=== PATIENT | male | born 1955 | race Caucasian/White ===

== ENCOUNTER 2018-10-20 13:24 | Day surgery (SDC) | payer BC ==
[~2018-10-20] VITALS: Ht 172.7 cm; Wt 77.1 kg
[2018-10-20] MEDS ORDERED: LACTATED RINGERS 1,000 ML IV ONE (13:30)
[2018-10-20] MEDS ORDERED: SUCCINYLCHOLINE INJ 100 MG/5 ML SYR ONE (13:40)
[2018-10-20] MEDS ORDERED: proPOfol 200 MG/20 ML (DIPRIVAN) VIAL IV ONE (13:41)
[2018-10-20] MEDS ORDERED: LIDOCAINE PF 2% 5 ML (XYLOCAINE) VIAL ONE (13:41)
[2018-10-20] MEDS ORDERED: fentaNYL INJECTION 100 MCG/2 ML AMP ONE (13:41)
[2018-10-20] MEDS ORDERED: MIDAZOLAM 2 MG/2 ML (VERSED) VIAL ONE (13:41)
[2018-10-20] MEDS ORDERED: LACTATED RINGERS 1,000 ML IV STA (13:54)
[2018-10-20] MEDS ORDERED: HURRICAINE EXT TUBE (BENZOCAINE) XX PRN (14:00)
[2018-10-20] MEDS ORDERED: SUCR1TAB36 PO (14:03)
[2018-10-20] MEDS ORDERED: PANT40SU PO (14:03)
[2018-10-20] MEDS ORDERED: ONDANSETRON 4 MG/2 ML (SDV) Z0FRAN ONE (14:05)
[2018-10-20] MEDS ORDERED: DEXAMETHASONE 10 MG/ML (DECADRON) 1 ML VIAL ONE (14:05)
[2018-10-20 14:12] VITALS: BP 114/83
[2018-10-20] MEDS ORDERED: SEVOFLURANE (ULTANE) 15 ML INHAL SOLN ONE (14:45)
--- NOTE | 2018-10-20 14:51 | Discharge Inst-Simple/Standard ---
Discharge Inst-Standard Patient Instructions/Follow Up Plan of Care/Instructions/FU: F/u Teri Tuesday. Activity as Tolerated: Yes Discharge Diet: Liquid Diet (liquid diet only, no pills or solids. Drink Ensure as well daily) KRISTINA ENCINAS DO Oct 20, 2018 14:51
[2018-10-20 15:15] VITALS: BP 122/67
--- NOTE | 2018-10-20 15:30 | Anesthesia-General Post-Op ---
General Patient Condition Mental Status/LOC: Same as Preop Cardiovascular: Satisfactory Nausea/Vomiting: Absent Respiratory: Satisfactory Pain: Controlled Complications: Absent Post Op Complications Complications None Follow Up Care/Instructions Patient Instructions None needed. Anesthesia/Patient Condition Patient Condition Patient is doing well, no complaints, stable vital signs, no apparent adverse anesthesia problems. No complications reported per nursing. D/C home per [facility] Criteria: Yes AYDEN HINSON CRNA Oct 20, 2018 15:30
[2018-10-20 15:50] VITALS: BP 119/80
[2018-10-20 15:55] LABS: BUN/CREATININE RATIO 15; CREATININE SERUM 0.82 MG/DL (0.60-1.30); GFR ESTIMATED > 60
--- NOTE | 2018-10-20 16:03 | Progress Note-Post Operative ---
Post-Operative Progess Note Surgeon (s)/Strategic Planning Specialist (s) Surgeon KRISTINA ENCINAS DO Strategic Planning Specialist: na Pre-Operative Diagnosis esophageal obstruction Post-Operative Diagnosis esophageal mass/obstruction Procedure & Operative Findings Date of Procedure 10/20/18 Procedure Performed/Findings egd c biopsies Anesthesia Type per continuity tester Estimated Blood Loss Estimated blood loss (mL): scant Specimens/Packing Specimens Removed ge mass KRISTINA ENCINAS DO Oct 20, 2018 16:03
[2018-10-20] MEDS ORDERED: CATHETER FLUSH 10 ML SYR IV PRN (16:15)
[2018-10-20] MEDS ORDERED: NS 100 ML (IVPB) BAG IV ONE (16:15)
[2018-10-20] MEDS ORDERED: IOHEXOL 350 MG/ML 100 ML (OMNIPAQUE 350) VIAL IV ONE (16:15)
[2018-10-20] MEDS ORDERED: RECEIVED CONTRAST 20 ML VIAL IV SCH (16:15)
--- NOTE | 2018-10-20 16:46 | NUR ---
1615: PATIENT TAKEN TO X-RAY DEPARTMENT FOR CT SCAN PER WHEELCHAIR. IV HEP.LOCKED; SITE GRACE. 1644" : PATIENT RETURNED FROM X-RAY DEPARTMENT; D/C;D IV AT THIS TIME. SITE GRACE BANDAID APPLIED. Addendum: 10/20/18 at 1651 by ART SALCEDO RN Amended: Links added.
[2018-10-20 16:50] VITALS: BP 119/80
--- NOTE | 2018-10-20 17:27 | Diagnostic Imaging Report ---
PROCEDURE: CT chest and abdomen with contrast. TECHNIQUE: Multiple contiguous axial images were obtained through the chest and abdomen after the administration of intravenous contrast. INDICATION: Esophageal mass. COMPARISON: None. FINDINGS: CT CHEST: The heart is normal in size. There is no pericardial effusion. No significant mediastinal adenopathy is seen. The thyroid demonstrates a hypoattenuating nodule measuring 2 cm on the right. No axillary lymphadenopathy is seen. There is dilatation of the distal esophagus with a fluid level present. There is thickening of the distal esophageal wall with a mass near the GE junction measuring 4.2 x 4.1 cm in size on axial imaging, and approximately 4.1 cm craniocaudal. Mild emphysematous changes are seen in the lungs. There is biapical pleural scarring. There is scarring in the lung bases, particularly the left lower lobe, with dependent atelectasis. A calcified granuloma is seen in the left upper lobe. CT ABDOMEN: There is a focal hypoattenuating lesion in the right liver measuring 5 mm which likely represents a small cyst. The spleen appears normal. The kidneys are normal. The left adrenal gland is thickened, but no discrete mass is seen. The pancreas appears normal. There is an enlarged lymph node measuring 2.4 x 3.0 cm anterior and inferior to the GE junction, and above the celiac trunk. There is barium seen throughout the bowel. No dilated loops of bowel are seen. IMPRESSION: 1. Soft tissue mass at the gastroesophageal junction concerning for malignancy. There is mild thickening of the distal esophageal wall with reflux in the esophagus. 2. Enlarged lymph node anterior and inferior to the GE junction mass concerning for metastatic disease. 3. Hypoattenuating nodule in the right thyroid gland, consider ultrasound for further evaluation. 4. Mild emphysematous changes in the lungs. Dictated by: Dictated on workstation # [id number]
--- NOTE | 2018-10-21 04:06 | OPERATIVE REPORT ---
DATE OF SERVICE: 10/20/2018 PREOPERATIVE DIAGNOSIS: Esophageal obstruction. POSTOPERATIVE DIAGNOSIS: Esophageal mass/obstruction, partial. PROCEDURE: EGD with biopsies. SURGEON: Kristina Williamson DO. ANESTHESIA: Per SUPERVISOR COOLER SERVICE. ESTIMATED BLOOD LOSS: Scant. COMPLICATIONS: None. Biopsy of GE mass. INDICATIONS: The patient is a 63-year-old male who for the last month has been having difficulty swallowing. He had barium swallow early this morning, which demonstrated an obstruction with very minimal barium moving through possibly due to neoplasm. The patient understands risks and benefits of procedure and wished to proceed with procedure. Consent was signed in the chart. DESCRIPTION OF PROCEDURE: The patient was taken to the endoscopy suite. He was intubated for airway protection. The gastroscope was inserted through the mouth and inserted into the esophagus where the proximal portion of esophagus was slightly dilated in fluid within the esophagus. This was suctioned. Then, a significant stricture was noted with the diameter being approximately 4 mm. Mass like changes around the stricture is slightly firm. The scope was unable to be passed through this area. Difficult to visualize past this area as well. Scope was then slowly retracted back. A diagnostic gastroscope was then utilized to insert into the mouth down the esophagus, which was able to be passed just barely through the stricture into the stomach. This could then be advanced down through the pylorus and into the duodenum. There are no polyps, masses, or ulcerations within the duodenum. Scope was then slowly retracted back into the stomach where it was also retroflexed not noting any other pathology. Scope was returned to its normal position and slowly withdrawn past through the GE junction where this strictured mass is present. imaging demonstrating changes consistent with mass. The scope was then slowly retracted until completely removed. Regular gastroscope was then reinserted into the mouth down the esophagus to the stricture. Biopsies of the mass were obtained. In the proximal portion of the stomach, there was also a foreign body, which appears to be a medication tablet. This was able to be suctioned out. A Quijano Net was used to retrieve the foreign body. Scope was then slowly retracted back until completely removed, noting no other pathology. RECOMMENDATIONS: The patient will be set up with Dr. Baez for endoscopic ultrasound for further evaluation. We will also get a CT of the chest and abdomen with instructions through the GE junction for further evaluation. The patient will have an appointment set up with myself on Tuesday. The patient recommended to stay on liquid diet only, not taking any medications for this not pass through. Job ID: [id number] DocumentID: [id number] Dictated Date: 10/20/2018 16:10:02 Customer Service Representative Teacher Date: 10/21/2018 04:05:41 Dictated By: KRISTNIA WILLIAMSON DO
== END 2018-10-20 16:51 | disposition home or self-care (01) ==
LOC: ENDO 13:24
PROVIDERS: ATTEND Surgery
DX: K22.2 Esophageal obstruction (principal); R19.06 Epigastric swelling, mass or lump; K20.9 Esophagitis, unspecified; R59.0 Localized enlarged lymph nodes; F17.210 Nicotine dependence, cigarettes, uncomplicated
CPT/HCPCS: 36415; 71260; 74160; 82565; 84520

== ENCOUNTER → 2018-10-31 | Outpatient (CLI) | payer BC ==
[~2018-10-31] MED LIST: PANT40SU PO; SUCR1TAB36 PO
--- NOTE | 2018-10-31 16:03 | Diagnostic Imaging Report ---
INDICATION: Esophageal carcinoma, initial staging. TECHNIQUE: Serum blood glucose level at the time of injection is 90 mg/dL. The patient was administered 12.5 mCi F-18 FDG intravenously and PET imaging was performed from the top of the skull to the mid thighs. Noncontrast CT was also performed for attenuation correction and anatomic correlation. COMPARISON: Comparison is made with CT study of the chest and abdomen from 10/20/2018. FINDINGS: There is symmetric activity throughout the brain. Soft tissues of the neck are unremarkable. No hilar hypermetabolism is seen. There is hypermetabolic mass involving the distal esophagus corresponding with CT soft tissue. This mass extends to the GE junction. SUV max is approximately 8.2. A second focus just inferior and slightly anteriorly is seen suggestive of a hypermetabolic lymph node. This shows an SUV max of approximately 7. Physiologic activity throughout the abdomen and pelvis is seen. IMPRESSION: Hypermetabolic mass involving the distal esophagus with associated hypermetabolic paraesophageal lymph node. No other significant abnormality is seen. Dictated by: Dictated on workstation # [id number]
== END ==
LOC: RAD 11:54
PROVIDERS: ATTEND Surgery
DX: C15.9 Malignant neoplasm of esophagus, unspecified (principal); K22.2 Esophageal obstruction

== ENCOUNTER 2018-11-02 05:34 | Outpatient (CLI) | payer BC ==
[~2018-11-02] VITALS: Ht 172.7 cm; Wt 77.1 kg
[2018-11-03] MEDS ORDERED: HYDR473S50 PO (10:51)
== END 2018-11-02 10:03 | disposition home or self-care (01) ==
LOC: PREOP 05:34
PROVIDERS: ATTEND Surgery
DX: Z01.818 Encounter for other preprocedural examination (principal)

== ENCOUNTER 2018-11-03 07:31 | Day surgery (SDC) | payer BC ==
[~2018-11-03] VITALS: Ht 172.7 cm; Wt 77.1 kg
[2018-11-03] MEDS ORDERED: ceFAZolin INJECTION 1,000 MG in WATER (STERILE) FOR INJECTION 10 ML IV ONE (07:45)
[2018-11-03 07:50] VITALS: BP 110/69
[2018-11-03] MEDS: LACTATED RINGERS 1,000 ML IV PRN ×2 (08:10→10:41)
[2018-11-03] MEDS ORDERED: 0.9% SODIUM CHLORIDE PF INJ 20 ML VIAL ONE (09:00)
[2018-11-03] MEDS ORDERED: BUP/EPI 0.5% 1:200,000 (SENSORCAINE) 30 ML VIAL ONE (09:00)
[2018-11-03] MEDS ORDERED: HEParin (CENTRAL IV FLUSH) 500 UNIT/5 ML SYR ONE (09:00)
[2018-11-03] MEDS ORDERED: LIDOCAINE 1% INJ 20 ML 20 ML VIAL ONE (09:01)
--- NOTE | 2018-11-03 09:12 | Progress Note-Pre Operative ---
Pre-Operative Progress Note H&P Reviewed The H&P was reviewed, patient examined and no changes noted. Date Seen by Provider: Nov 03, 2018 Time Seen by Provider: 09:12 Date H&P Reviewed: Nov 03, 2018 Time H&P Reviewed: 09:12 Pre-Operative Diagnosis: adenocarcinoma ge junction KRISTINA ENCINAS DO Nov 03, 2018 09:12
[2018-11-03] MEDS ORDERED: proPOfol 200 MG/20 ML (DIPRIVAN) VIAL IV ONE (09:23)
[2018-11-03] MEDS ORDERED: MIDAZOLAM 2 MG/2 ML (VERSED) VIAL ONE (09:24)
[2018-11-03] MEDS ORDERED: LIDOCAINE PF 2% 5 ML (XYLOCAINE) VIAL ONE (09:24)
[2018-11-03] MEDS ORDERED: ONDANSETRON 4 MG/2 ML (SDV) Z0FRAN ONE (09:27)
[2018-11-03] MEDS ORDERED: GLYCOPYRROLATE 0.2 MG/ML (ROBINUL) 2 ML VIAL ONE (10:16)
[2018-11-03] MEDS ORDERED: morphine INJ 10 MG/ML 1ML (SYR OR VIAL) IVP ONE (10:30)
[2018-11-03] MEDS ORDERED: ONDANSETRON 4 MG/2 ML (SDV) Z0FRAN IVP PRN (10:30)
[2018-11-03] MEDS ORDERED: HYDR473S50 PO (10:51)
--- NOTE | 2018-11-03 10:52 | Discharge Inst-Simple/Standard ---
Discharge Inst-Standard Discharge Medications New, Converted or Re-Newed RX: RX on Chart Patient Instructions/Follow Up Plan of Care/Instructions/FU: 2 weeks Teri Activity as Tolerated: No Discharge Diet: Liquid Diet Other Inst to Patient Follow up Appt: Make appointment for 2 week. Instructions: No lifting greater than 10 pounds. No strenuous activity. May shower in 24 hours, no tub bath or soaking. Use incentive spirometer at home as directed. No Smoking Skin/Wound Care: May remove bandages in 24 hours. You have special glue over incisions it will fall off on its own. Symptoms to Report: Appetite Changes, Extremity Discoloration, Numbness/Tingling, Swelling Increased , Bleeding Excessive, Eyesight Changes, Pain Increased, Urine Color Change, Constipation(Persistent), Fever over 101 degree F, Pain/Pressure in chest, Urinating Difficulty, Cough Up/Vomit Blood, Heart Beat Irreg/Pounding, Pain/ Pressure in jaw, Vaginal Bleeding Increase, Cramps in feet or legs, Lightheadedness, Pain/Pressure in shoulder, Diarrhea(Persistent), Memory Changes Suddenly, Questions/Concerns, Weight gain consecutive days, Dizziness/ Fainting, Nausea/Vomiting, Shortness of Breath, Weight gain over 2 pounds If questions or concerns contact your physician Or seek help at emergency department. KRISTINA ENCINAS DO Nov 03, 2018 10:52
[2018-11-03 11:00] VITALS: BP 123/76
[2018-11-03 11:05] VITALS: BP 123/76
--- NOTE | 2018-11-03 11:14 | Diagnostic Imaging Report ---
INDICATION: Port placement. Time of exam: 10:56 AM Portable view of the chest shows a right chest wall port with tip overlying the SVC. No pneumothorax is identified. The lungs are clear. IMPRESSION: Port placement. No pneumothorax is identified. Dictated by: Dictated on workstation # [id number]
[2018-11-03 11:30] VITALS: BP 119/73
--- NOTE | 2018-11-03 12:28 | Anesthesia-General Post-Op ---
General Patient Condition Mental Status/LOC: Same as Preop Cardiovascular: Satisfactory Nausea/Vomiting: Absent Respiratory: Satisfactory Pain: Controlled Complications: Absent Post Op Complications Complications None Follow Up Care/Instructions Patient Instructions None needed. Anesthesia/Patient Condition Patient Condition Patient is doing well, no complaints, stable vital signs, no apparent adverse anesthesia problems. No complications reported per nursing. PEE TALAMANTES CRNA Nov 03, 2018 12:28
--- NOTE | 2018-11-03 18:52 | Diagnostic Imaging Report ---
INDICATION: Power port placement. EXAMINATION: Fluoroscopy was provided for Dr. Williamson during power port placement. 15 seconds of fluoroscopy was utilized. FINDINGS: A single image was obtained demonstrating a right chest wall port with tip overlying the SVC. IMPRESSION: Fluoroscopy during power port placement. Dictated by: Dictated on workstation # [id number]
--- NOTE | 2018-11-04 02:34 | OPERATIVE REPORT ---
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 POSTOPERATIVE DIAGNOSIS: Adenocarcinoma of the gastroesophageal junction. PROCEDURE: Right internal jugular ultrasound-guided port placement. SURGEON: Kristina Williamson DO ANESTHESIA: MAC with local. ESTIMATED BLOOD LOSS: Minimal. COMPLICATIONS: None. 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 The patient understands risks and benefits of procedure and wished to proceed with procedure. Consent was signed in the chart. DESCRIPTION OF PROCEDURE: The patient was taken to the operating suite, was prepped and draped in sterile fashion. Surgical pause was performed. Using ultrasound, the right internal jugular vein was visualized. Local anesthetic was infiltrated anterior to this area. A micro access needle was then used to access the right internal jugular vein under visualization of the ultrasound. Dark nonpulsatile blood was withdrawn. The micro access wire was inserted through the needle and the needle was removed. The fluoroscopy was then used to assure proper placement of the wire. An 11 blade scalpel was used to make a stab incision at the insertion point and dilator was then advanced over the wire and the wire was removed. The normal guidewire was inserted and the sheath was removed. Fluoroscopy assured proper placement. The wire was then secured. Local anesthetic was used to infiltrate the right neck and onto the right chest for pocket creation. A 15 blade scalpel was used to make a skin incision. Dissection was taken down to the pectoral fascia and a pocket was created with blunt and cautery dissection. The dilator sheath was advanced over the guidewire under fluoroscopy and the wire and dilator were removed. The Groshong catheter was inserted into the sheath and the sheath was then removed. The catheter was then tunneled from the insertion point of the neck down to the pocket that was created on the right chest. The catheter was then cut to length and port was secured in the usual fashion. This port was then placed into the pocket. Port was then accessed without difficulty. Blood was withdrawn. The port was then first flushed with saline and then with heparin. The subcutaneous tissues were then reapproximated using 3-0 Vicryl. Skin was then closed using Skin Affix, both the skin incision and the neck. Fluoroscopy assured proper placement. The patient tolerated procedure well without complications and taken to recovery room in stable condition. Chest x-ray pending. Job ID: [id number] DocumentID: [id number] Dictated Date: 11/03/2018 16:31:43 Hand Inspector Date: 11/04/2018 02:33:50 Dictated By: KRISTINA WILLIAMSON DO
== END 2018-11-03 11:35 | disposition home or self-care (01) ==
LOC: SDC 07:31
PROVIDERS: ATTEND Surgery
DX: C16.0 Malignant neoplasm of cardia (principal); J44.9 Chronic obstructive pulmonary disease, unspecified; F17.210 Nicotine dependence, cigarettes, uncomplicated
CPT/HCPCS: 71045; 87081

== ENCOUNTER 2018-11-08 10:47 | Outpatient (RCR) | payer BC ==
[~2018-11-08 10:47] MED LIST changes: +HYDR473S50 PO
[2018-11-08 11:08] LABS: BASOPHILS # (AUTO) 0.1 10^3/uL (0.0-0.1); BASOPHILS % (AUTO) 1 % (0-10); EOSINOPHILS # (AUTO) 0.1 10^3/uL (0.0-0.3); EOSINOPHILS % (AUTO) 1 % (0-10); HEMATOCRIT 46 % (40-54); HEMOGLOBIN 15.9 G/DL (13.3-17.7); LYMPHOCYTES # (AUTO) 1.7 X 10^3 (1.0-4.0); LYMPHOCYTES % (AUTO) 17 % (12-44); MEAN CORPUSCULAR HEMOGLOBIN 31 PG (25-34); MEAN CORPUSCULAR HGB CONC 35 G/DL (32-36); MEAN CORPUSCULAR VOLUME 89 FL (80-99); MEAN PLATELET VOLUME 9.6 FL (7.4-10.4); MONOCYTES # (AUTO) 0.8 X 10^3 (0.0-1.0); MONOCYTES % (AUTO) 8 % (0-12); NEUTROPHILS # (AUTO) 7.3 X 10^3 (1.8-7.8); NEUTROPHILS % (AUTO) 73 % (42-75); PLATELET COUNT 323 10^3/uL (130-400); RED CELL DISTRIBUTION WIDTH 14.2 % (10.0-14.5); WHITE BLOOD COUNT 9.9 10^3/uL (4.3-11.0)
[2018-11-08 11:28] LABS: ALANINE AMINOTRANSFERASE 14 U/L (0-55); ALBUMIN 3.9 GM/DL (3.2-4.5); ALKALINE PHOSPHATASE 89 U/L (40-136); BILIRUBIN,TOTAL 0.2 MG/DL (0.1-1.0); BUN/CREATININE RATIO 20; CALCIUM 9.6 MG/DL (8.5-10.1); CARBON DIOXIDE 25 MMOL/L (21-32); CHLORIDE 105 MMOL/L (98-107); CREATININE SERUM 0.82 MG/DL (0.60-1.30); GFR ESTIMATED > 60; GLUCOSE 84 MG/DL (70-105); POTASSIUM 3.9 MMOL/L (3.6-5.0); SODIUM 141 MMOL/L (135-145); TOTAL PROTEIN 6.9 GM/DL (6.4-8.2)
== END 2019-02-05 | disposition home or self-care (01) ==
LOC: ONC 10:47
PROVIDERS: ATTEND Internal Medicine Hematology & Oncology
DX: C16.0 Malignant neoplasm of cardia (principal); J44.9 Chronic obstructive pulmonary disease, unspecified; F17.210 Nicotine dependence, cigarettes, uncomplicated
CPT/HCPCS: 36415; 77300; 77301; 77334; 77338; 77470; 80053; 82378; 85025; 99204; 99213

== ENCOUNTER 2019-03-15 16:15 | Outpatient (RCR) | payer BC ==
[2019-03-02 17:00] VITALS: BP 128/71
--- NOTE | 2019-03-05 14:20 | NUR ---
ARRIVED AT 1350 FOR LAB DRAW AND PORT CARE. ORDERED LABS DRAWN, PORT FLUSHED WITH 10 ML NS, ARELLANO NEEDLE ACCESS REMOVED. PORT THEN RE-ACCESSED PER ORDER AND FLUSHED WITH 20 ML NS.
[2019-03-05 14:31] LABS: BASOPHILS % (AUTO) 0 % (0-10); EOSINOPHILS # (AUTO) 0.1 10^3/uL (0.0-0.3); EOSINOPHILS % (AUTO) 1 % (0-10); HEMATOCRIT 31 % (40-54); HEMOGLOBIN 9.8 G/DL (13.3-17.7); LYMPHOCYTES # (AUTO) 1.3 X 10^3 (1.0-4.0); LYMPHOCYTES % (AUTO) 7 % (12-44); MEAN CORPUSCULAR HEMOGLOBIN 30 PG (25-34); MEAN CORPUSCULAR HGB CONC 32 G/DL (32-36); MEAN CORPUSCULAR VOLUME 93 FL (80-99); MEAN PLATELET VOLUME 9.3 FL (7.4-10.4); MONOCYTES # (AUTO) 1.2 X 10^3 (0.0-1.0); MONOCYTES % (AUTO) 6 % (0-12); NEUTROPHILS # (AUTO) 15.3 X 10^3 (1.8-7.8); NEUTROPHILS % (AUTO) 86 % (42-75); PLATELET COUNT 695 10^3/uL (130-400); RED CELL DISTRIBUTION WIDTH 15.7 % (10.0-14.5); WHITE BLOOD COUNT 17.9 10^3/uL (4.3-11.0)
[2019-03-05 14:43] LABS: BAND NEUTROPHILS 0 %; BASOPHILS % (MANUAL) 0 %; EOSINOPHILS % (MANUAL) 0 %; LYMPHOCYTES % (MANUAL) 4 %; MONOCYTES % (MANUAL) 5 %; NEUTROPHILS % (MANUAL) 91 %; RBC MORPH NORMAL
[2019-03-05 14:53] LABS: ALANINE AMINOTRANSFERASE 16 U/L (0-55); ALBUMIN 2.5 GM/DL (3.2-4.5); ALKALINE PHOSPHATASE 122 U/L (40-136); BILIRUBIN,TOTAL 0.2 MG/DL (0.1-1.0); BUN/CREATININE RATIO 23; CALCIUM 8.4 MG/DL (8.5-10.1); CARBON DIOXIDE 27 MMOL/L (21-32); CHLORIDE 104 MMOL/L (98-107); CREATININE SERUM 0.56 MG/DL (0.60-1.30); GFR ESTIMATED > 60; GLUCOSE 99 MG/DL (70-105); POTASSIUM 3.4 MMOL/L (3.6-5.0); SODIUM 139 MMOL/L (135-145); TOTAL PROTEIN 5.9 GM/DL (6.4-8.2)
[2019-03-05 14:59] LABS: VANCOMYCIN,TROUGH 17.9 UG/ML (10.0-20.0)
--- NOTE | 2019-03-05 15:20 | NUR ---
CONTACTED PT'S BY PHONE TO DISCUSS VANCO INFUSION SCHEDULE AFTER SOME CONFUSION WHEN PT WAS HERE FOR LABS. PT'S STATES [facility]CO INFUSIONS ARE BID, AT 0530 AND 1730 DAILY. DISCUSSED WITH HER NEED TO HAVE PT COME IN LATER IN THE DAY EACH TUESDAY FOR LABS SO THAT VANCO TROUGH CAN BE DRAWN 30 MIN BEFORE SCHEDULED DOSE AT 1730. VERBALIZED UNDERSTANDING.
[2019-03-05 15:30] VITALS: BP 128/71
--- NOTE | 2019-03-12 16:40 | NUR ---
RIGHT UPPER CHEST PORT ACCESS IN PLACE WITH DRESSING D/I ON ARRIVAL. PORT FLUSHED WITH 5 ML NS, 7 ML BLOOD DRAWN AND DISCARDED, THEN BLOOD DRAWN PER VACUTAINER TO GREEN AND PURPLE TOP TUBES, LABELED AND SENT TO LAB. PORT FLUSHED WITH 10 ML NS, ARELLANO NEEDLE REMOVED, THEN POWER PORT REACCESSED WITH #19 G, 0.75 INCH POWER PORT NEEDLE ON FIRST ATTEMPT, FLUSHED WITH 20 ML NS AFTER +BLOOD RETURN. STERILE TECHNIQUE FOR PROCEDURE, DRESSING APPLIED OVER SITE.
[2019-03-12 16:50] VITALS: BP 0/0
[2019-03-12 16:58] LABS: BASOPHILS % (AUTO) 0 % (0-10); EOSINOPHILS # (AUTO) 0.3 10^3/uL (0.0-0.3); EOSINOPHILS % (AUTO) 3 % (0-10); HEMATOCRIT 31 % (40-54); HEMOGLOBIN 9.7 G/DL (13.3-17.7); LYMPHOCYTES # (AUTO) 0.7 X 10^3 (1.0-4.0); LYMPHOCYTES % (AUTO) 7 % (12-44); MEAN CORPUSCULAR HEMOGLOBIN 29 PG (25-34); MEAN CORPUSCULAR HGB CONC 31 G/DL (32-36); MEAN CORPUSCULAR VOLUME 91 FL (80-99); MEAN PLATELET VOLUME 9.6 FL (7.4-10.4); MONOCYTES # (AUTO) 0.9 X 10^3 (0.0-1.0); MONOCYTES % (AUTO) 8 % (0-12); NEUTROPHILS # (AUTO) 8.8 X 10^3 (1.8-7.8); NEUTROPHILS % (AUTO) 82 % (42-75); PLATELET COUNT 407 10^3/uL (130-400); RED CELL DISTRIBUTION WIDTH 15.1 % (10.0-14.5); WHITE BLOOD COUNT 10.8 10^3/uL (4.3-11.0)
[2019-03-12 17:15] LABS: ALANINE AMINOTRANSFERASE 12 U/L (0-55); ALBUMIN 2.6 GM/DL (3.2-4.5); ALKALINE PHOSPHATASE 112 U/L (40-136); BILIRUBIN,TOTAL 0.2 MG/DL (0.1-1.0); BUN/CREATININE RATIO 20; CALCIUM 8.7 MG/DL (8.5-10.1); CARBON DIOXIDE 28 MMOL/L (21-32); CHLORIDE 101 MMOL/L (98-107); CREATININE SERUM 0.79 MG/DL (0.60-1.30); GFR ESTIMATED > 60; GLUCOSE 100 MG/DL (70-105); POTASSIUM 3.8 MMOL/L (3.6-5.0); SODIUM 138 MMOL/L (135-145)
[2019-03-12 17:22] LABS: BAND NEUTROPHILS 2 %; EOSINOPHILS % (MANUAL) 2 %; LYMPHOCYTES % (MANUAL) 7 %; MONOCYTES % (MANUAL) 4 %; NEUTROPHILS % (MANUAL) 85 %; RBC MORPH NORMAL
[2019-03-12 17:25] LABS: VANCOMYCIN,TROUGH 32.7 UG/ML (10.0-20.0)
--- NOTE | 2019-03-12 17:25 | NUR ---
CRITICAL HIGH VANCO TROUGH LEVEL OF 32.7 CALLED FROM LAB TO Ubaldo GHOTRA RN. THIS RN CONTACTED PT'S , MICHAEL, AT 1730 AND INSTRUCTED THEM TO HOLD [facility]CO INFUSIONS UNTIL OK'D TO PROCEED BY [facility] AND/OR INFECTIOUS DISEASE PHYSICIAN. ATTEMPTED, BUT UNABLE TO CONTACT INFECTIOUS DISEASE DEPT, DR KWON, INFECTIOUS DISEASE RN'S JUNIOR AND TAVO TRAYLOR DUE TO BEING AFTER HOURS. MESSAGE LEFT FOR ID CUT OFF [employer] LOG FELLOW ON VOICE MAIL AT PHONE NUMBER PROVIDED ON ORDERS ([phone]). ALSO CONTACTED [facility] ANSWERING SERVICE WITH REQUEST FOR RETURN CALL. LABS FAXED TO BOTH FACILITIES.
--- NOTE | 2019-03-12 18:00 | NUR ---
CALL RECEIVED FROM CRISTÓBAL AT [facility]. INFORMED HER OF LAB RESULTS AND SHE STATED SHE WILL CONTACT THE ANALYSIS INTERNSHIP PHARMACIST THERE AND THEN CONTACT THE PT/PT'S DIRECTLY WITH INFUSION INSTRUCTIONS. THIS RN CALLED PT'S MICHAEL TO TELL HER TO EXPECT A CALL FROM [facility]. PT ALSO HAS THE PHONE NUMBER FOR THEM.
[~2019-03-15] VITALS: Ht 172.7 cm; Wt 72.6 kg
[~2019-03-15 16:15] MED LIST changes: +HEParin (CENTRAL IV FLUSH) 500 UNIT/5 ML SYR ONE
[2019-03-15 16:31] VITALS: BP 109/59
[2019-03-15 17:11] LABS: CREATININE SERUM 0.78 MG/DL (0.60-1.30)
[2019-03-15 17:27] LABS: VANCOMYCIN,TROUGH 28.7 UG/ML (10.0-20.0)
--- NOTE | 2019-03-15 17:27 | NUR ---
RECEIVED CRITICAL LAB RESULT, VANCO TROUGH 28.7. AT THIS TIME CALLED ON-CALL ID WHO STATED TO NOTIFY [facility]. CALLED [facility], NOTIFIED THEM OF RECENT RESULTS. THE HEEL DIPPER WAS GOING TO CALL JAYESH THE PRIMARY PHARMACIST ON THIS PATIENT'S CASE. CALLED MICHAEL, PATIENT'S , TO INSTRUCT HER TO HOLD ABX AT THIS TIME UNTIL SHE HEARS FROM JAYESH THE PHARMACIST AT [facility]. THIS RN SPOKE WITH JAYESH REGARDING LAB RESULT. THIS RN FAXED OVER RESULTS TO ID AND [facility].
--- NOTE | 2019-03-19 10:15 | NUR ---
CALL RECEIVED FROM PT'S , MICHAEL, STATING PT WILL NOT BE IN TODAY FOR SCHEDULED LABS AND ARELLANO NEEDLE CHANGE. STATES PT HAS BEEN ADMITTED TO OVER THE WEEKEND FOR FEVER.
== END 2019-05-31 | disposition home or self-care (01) ==
LOC: SDC 16:15
PROVIDERS: ATTEND Thoracic Surgery (Cardiothoracic Vascular Surgery)
DX: J85.3 Abscess of mediastinum (principal); Z79.2 Long term (current) use of antibiotics
CPT/HCPCS: 36415; 36591; 80053; 80202; 82565; 85007; 85027

== ENCOUNTER 2019-03-17 23:32 | Emergency (ER) | payer BC ==
[~2019-03-17] VITALS: Ht 167.6 cm; Wt 68.0 kg
[~2019-03-17 23:32] MED LIST changes: -HEParin (CENTRAL IV FLUSH) 500 UNIT/5 ML SYR ONE
[2019-03-18 00:04] LABS: BASOPHILS # (AUTO) 0.1 10^3/uL (0.0-0.1); BASOPHILS % (AUTO) 1 % (0-10); EOSINOPHILS # (AUTO) 0.2 10^3/uL (0.0-0.3); EOSINOPHILS % (AUTO) 2 % (0-10); HEMATOCRIT 31 % (40-54); HEMOGLOBIN 9.7 G/DL (13.3-17.7); LYMPHOCYTES # (AUTO) 0.6 X 10^3 (1.0-4.0); LYMPHOCYTES % (AUTO) 6 % (12-44); MEAN CORPUSCULAR HEMOGLOBIN 28 PG (25-34); MEAN CORPUSCULAR HGB CONC 32 G/DL (32-36); MEAN CORPUSCULAR VOLUME 87 FL (80-99); MONOCYTES # (AUTO) 0.5 X 10^3 (0.0-1.0); MONOCYTES % (AUTO) 5 % (0-12); NEUTROPHILS # (AUTO) 8.6 X 10^3 (1.8-7.8); NEUTROPHILS % (AUTO) 86 % (42-75); PLATELET COUNT 446 10^3/uL (130-400); RED CELL DISTRIBUTION WIDTH 15.4 % (10.0-14.5); WHITE BLOOD COUNT 9.9 10^3/uL (4.3-11.0)
[2019-03-18 00:08] LABS: INR 1.2 (0.8-1.4); PROTHROMBIN TIME PATIENT 15.1 SEC (12.2-14.7)
[2019-03-18 00:10] LABS: BILIRUBIN,URINE NEGATIVE (NEGATIVE); CLARITY,URINE SLIGHTLY CLOUDY; COLOR,URINE YELLOW; GLUCOSE, URINE (UA) NEGATIVE (NEGATIVE); KETONES,URINE 1+ (NEGATIVE); LEUKOCYTE ESTERASE ,URINE 1+ (NEGATIVE); NITRITE,URINE NEGATIVE (NEGATIVE); PH,URINE 6.5 (5-9); PROTEIN,URINE 3+ (NEGATIVE); UROBILINOGEN,URINE NORMAL (NORMAL)
[2019-03-18] MEDS ORDERED: NS IV 1000 ML 1,000 ML IV SCH ×2 (00:11→00:41)
[2019-03-18 00:20] LABS: ALANINE AMINOTRANSFERASE 28 U/L (0-55); ALBUMIN 2.7 GM/DL (3.2-4.5); ALKALINE PHOSPHATASE 171 U/L (40-136); BILIRUBIN,TOTAL 0.2 MG/DL (0.1-1.0); BUN/CREATININE RATIO 30; CALCIUM 8.7 MG/DL (8.5-10.1); CARBON DIOXIDE 21 MMOL/L (21-32); CHLORIDE 101 MMOL/L (98-107); CREATINE KINASE 12 U/L (30-200); CREATININE SERUM 0.81 MG/DL (0.60-1.30); GFR ESTIMATED > 60; GLUCOSE 110 MG/DL (70-105); MAGNESIUM 1.8 MG/DL (1.8-2.4); POTASSIUM 3.9 MMOL/L (3.6-5.0); SODIUM 134 MMOL/L (135-145); TOTAL PROTEIN 6.5 GM/DL (6.4-8.2)
[2019-03-18 00:28] LABS: BAND NEUTROPHILS 10 %; EOSINOPHILS % (MANUAL) 2 %; LYMPHOCYTES % (MANUAL) 3 %; MONOCYTES % (MANUAL) 4 %; NEUTROPHILS % (MANUAL) 81 %; RBC MORPH NORMAL
[2019-03-18 00:29] LABS: BACTERIA,URINE MODERATE /HPF; RBC,URINE 0-2 /HPF
[2019-03-18 00:29] LABS: CREATINE KINASE MB 0.4 NG/ML (<6.6)
[2019-03-18] MEDS ORDERED: PIPERACILLIN SODIUM/TAZOBACTAM 4.5 GM in NS (IVPB) 100 ML IV ONE (00:45)
[2019-03-18] MEDS ORDERED: VANCOMYCIN INJECTION 1,000 MG in NS (IVPB) 250 ML IV ONE (00:45)
--- NOTE | 2019-03-18 00:50 | NUR ---
Wound culture obtained from rt posterior chest wall (chest tube) by Dr. Loera. Culture sent to lab.
[2019-03-18] MEDS ORDERED: APAP 325 MG/10.15 ML LIQ (TYLENOL) UDC PEG ONE (01:00)
[2019-03-18] MEDS ORDERED: IBUPROFEN 800 MG (MOTRIN) TAB PO ONE (01:00)
[2019-03-18] MEDS ORDERED: IBUPROFEN SUSP 100MG/5ML (MOTRIN) UDC PEG ONE (01:00)
[2019-03-18] MEDS ORDERED: ACETAMINOPHEN 500 MG TAB (TYLENOL) PO ONE (01:00)
[2019-03-18] MEDS ORDERED: VANCOMYCIN 1000 MG/VIAL ONE (01:51)
[2019-03-18] MEDS ORDERED: fentaNYL INJECTION 100 MCG/2 ML AMP IVP ONE ×2 (02:00→03:30)
[2019-03-18] MEDS ORDERED: NS (IVPB) 250 ML ONE (02:03)
[2019-03-18 03:30] VITALS: BP 107/61
--- NOTE | 2019-03-18 03:30 | NUR ---
Upon d/c for pt transfer to , ns fluid bolus and 1g vancomycin 250ml/hr continues infusing to rt chest wall.
--- NOTE | 2019-03-18 09:26 | Diagnostic Imaging Report ---
EXAM: CHEST 1 VIEW, AP/PA ONLY INDICATION: Chest radiograph 11/03/2018. COMPARISON: Shortness of air. FINDINGS: Since prior exam, a drainage catheter has been placed in the right mediastinum. Esophageal stent in the upper mediastinum. Stable right tunneled port IJ CVC tip mid SVC. Right thoracotomy. Increasing consolidation in the right lower lobe and, to a lesser extent, the right upper lobe medially. Left lung is relatively clear. Tiny right pleural effusion or thickening. IMPRESSION: Interval postoperative changes as above. There is increasing consolidation in the medial right lower lobe and, to a lesser extent, the right upper lobe. Dictated by: Dictated on workstation # [id number]
--- NOTE | 2019-05-18 00:20 | ED Respiratory ---
General Chief Complaint: Respiratory Problems Stated Complaint: SOB Nursing Triage Note: Assisted pt out of pov via ED w/c to room #3. Upon arrival a&ox4. C/o weakness, fever, chills, and leaking chest tube. Pt reports on 03/09/19 [facility] placed chest tube to rt posterior back and placed peg tube d/t stomach/esophagus cancer. @ side reports on 03/16/19 pt developed low grade fever that was treated with tylenol. reports this evening pt developed temp of 103.9 that was not receptive to 1g tylenol adm through peg feeding. Initial tympanic temp 98.3. Approx 30ml purulent drainage noted in chest tube drainage system. Source: spouse Exam Limitations: other (LIMITED HISTORIAN) History of Present Illness Date Seen by Provider: Mar 17, 2019 Time Seen by Provider: 23:35 Initial Comments PT ARRIVES VIA POV FROM HOME, NEEDS FULL ASSIST OUT OF VEHICLE C/O SHORTNESS OF BREATH C/O GENERALIZED WEAKNESS C/O FEVER UP TO 103.9 AND CHILLS--BEGAN RUNNING "LOW GRADE" FEVER YESTERDAY. HAD A DOSE OF TYLENOL THIS EVENING, BUT STATES DID NOT HELP. NO SIGNIFICANT COUGH PT JUST DISMISSED FROM [facility], AFTER HAVING A CHEST TUBE PLACE TO RIGHT POSTERIOR CHEST ON 03/09/19, ALONG WITH A PEG TUBE DUE TO STOMACH AND ESOPHAGEAL CANCER. CANCER DX 10/2018 LAST CHEMO WAS IN DECEMBER 2018 Allergies and Home Medications Allergies Coded Allergies: No Known Drug Allergies (Unverified , 10/20/18) Home Medications Hydrocodone/Acetaminophen 473 Ml Solution, 15 ML PO Q4H PRN for PAIN-MODERATE TO SEVERE Prescribed by: KRISTINA ENCINAS on 11/03/18 1051 Patient Home Medication List Home Medication List Reviewed: Yes Review of Systems Review of Systems Constitutional: see HPI, chills, fever, malaise, weakness EENTM: no symptoms reported Respiratory: see HPI, short of breath Cardiovascular: see HPI Gastrointestinal: see HPI Genitourinary: no symptoms reported Psychiatric/Neurological: No Symptoms Reported; Denies Headache Past Lqpwcpb-[id number]-Dzajrm Hx Past Med/Social Hx: Reviewed and Corrections made Patient Social History Alcohol Use: Denies Use Recreational Drug Use: No Smoking Status: Current Everyday Smoker (1 PPD) Type Used: Cigarettes (1 PPD) 2nd Hand Smoke Exposure: Yes Recent Foreign Travel: No Contact w/Someone Who Travel: No Recent Infectious Disease Expo: No Recent Hopitalizations: No Immunizations Up To Date Tetanus Booster (TDap): Unknown PED Vaccines UTD: No Seasonal Allergies Seasonal Allergies: No Past Medical History Surgeries: Yes (back; right ankle; rib fx. with chest tubes;EGD'S / ESOPHAGEAL DILATIONS; PEG TUBE AND RIGHT CHEST TUBE 03/09/19 AT [facility] FOR PNEUMONIA AND ESOPHAGEAL/STOMACH CANCER. PORT PLACEMENT) Abdominal, Orthopedic Respiratory: Yes (RIGHT CHEST TUBE 03/09/19 ) Pneumonia, COPD Currently Using CPAP: No Currently Using BIPAP: No Cardiac: No Neurological: No Genitourinary: No Gastrointestinal: Yes (STOMACH/ESOPHAGEAL CANCER DX 10/2018 --S/P PEG TUBE PLACEMENT, AND CHEMOTHERAPY) Gastroesophageal Reflux Musculoskeletal: Yes Back Injury, Chronic Back Pain Endocrine: No HEENT: No Cancer: Yes (DX 10/2018) Esophageal Did You Recieve Any Treatments: Yes (NO CHEMO SINCE DECEMBER 2018) What Type of Treatment Did You: Chemotherapy Psychosocial: No Integumentary: No Blood Disorders: No Physical Exam Capillary Refill : Less Than 3 Seconds Height: 5'6.00" Weight: 150lbs. 0.0oz. 68.407627vg; 25.9 BMI Method:Estimated General Appearance: other (LETHARGIC) Neck: normal inspection Respiratory: other (MILDLY DYSPNEIC, DECREASED BREATH SOUNDS RIGHT BASE. 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, no motor/sensory deficits, a lert Skin: warm/dry, pallor Focused Exam Lactate Level 03/17/19 23:50: Lactic Acid Level 1.33 Lactic Acid Level Laboratory Tests Test 03/17/19 23:50 Lactic Acid Level 1.33 MMOL/L (0.50-2.00) Progress/Results/Core Measures Suspected Sepsis Recent Fever Within 48 Hours: Yes Infection Criteria Present: Suspected New Infection New/Unexplained Altered Menta: No Sepsis Screen: Possible Sepsis Risk SIRS Temperature:102.0 Pulse: 97 Respiratory Rate: 17 Laboratory Tests 03/17/19 23:50: White Blood Count 9.9 Blood Pressure 107 /61 Mean: 76 03/17/19 23:50: Lactic Acid Level 1.33 Laboratory Tests 03/17/19 23:50: Creatinine 0.81, INR Comment 1.2, Platelet Count 446H, Total Bilirubin 0.2 Results/Orders Lab Results Laboratory Tests Test 03/17/19 23:34 03/17/19 23:50 03/17/19 23:53 Range/Units Lab Scanned Report Referred Lab Report [id number] White Blood Count 9.9 4.3-11.0 10^3/uL Red Blood Count 3.49 L 4.35-5.85 10^6/uL Hemoglobin 9.7 L 13.3-17.7 G/DL Hematocrit 31 L 40-54 % Mean Corpuscular Volume 87 80-99 FL Mean Corpuscular Hemoglobin 28 25-34 PG Mean Corpuscular Hemoglobin Concent 32 32-36 G/DL Red Cell Distribution Width 15.4 H 10.0-14.5 % Platelet Count 446 H 130-400 10^3/uL Mean Platelet Volume 10.0 7.4-10.4 FL Neutrophils (%) (Auto) 86 H 42-75 % Lymphocytes (%) (Auto) 6 L 12-44 % Monocytes (%) (Auto) 5 0-12 % Eosinophils (%) (Auto) 2 0-10 % Basophils (%) (Auto) 1 0-10 % Neutrophils # (Auto) 8.6 H 1.8-7.8 X 10^3 Lymphocytes # (Auto) 0.6 L 1.0-4.0 X 10^3 Monocytes # (Auto) 0.5 0.0-1.0 X 10^3 Eosinophils # (Auto) 0.2 0.0-0.3 10^3/uL Basophils # (Auto) 0.1 0.0-0.1 10^3/uL Neutrophils % (Manual) 81 % Lymphocytes % (Manual) 3 % Monocytes % (Manual) 4 % Eosinophils % (Manual) 2 % Band Neutrophils 10 % Blood Morphology Comment NORMAL Prothrombin Time 15.1 H 12.2-14.7 SEC INR Comment 1.2 0.8-1.4 Activated Partial Thromboplast Time 45 H 24-35 SEC Sodium Level 134 L 135-145 MMOL/L Potassium Level 3.9 3.6-5.0 MMOL/L Chloride Level 101 98-107 MMOL/L Carbon Dioxide Level 21 21-32 MMOL/L Anion Gap 12 5-14 MMOL/L Blood Urea Nitrogen 24 H 7-18 MG/DL Creatinine 0.81 0.60-1.30 MG/DL Estimat Glomerular Filtration Rate > 60 BUN/Creatinine Ratio 30 Glucose Level 110 H 70-105 MG/DL Lactic Acid Level 1.33 0.50-2.00 MMOL/L Calcium Level 8.7 8.5-10.1 MG/DL Corrected Calcium 9.7 8.5-10.1 MG/DL Magnesium Level 1.8 1.8-2.4 MG/DL Total Bilirubin 0.2 0.1-1.0 MG/DL Aspartate Amino Transf (AST/SGOT) 30 5-34 U/L Alanine Aminotransferase (ALT/SGPT) 28 0-55 U/L Alkaline Phosphatase 171 H 40-136 U/L Total Creatine Kinase 12 L 30-200 U/L Creatine Kinase MB 0.4 <6.6 NG/ML Myoglobin 28.4 10.0-92.0 NG/ML Troponin I < 0.028 <0.028 NG/ML B-Type Natriuretic Peptide 174.9 H <100.0 PG/ML Total Protein 6.5 6.4-8.2 GM/DL Albumin 2.7 L 3.2-4.5 GM/DL Urine Color YELLOW Urine Clarity SLIGHTLY CLOUDY Urine pH 6.5 5-9 Urine Specific [place] 1.015 L 1.016-1.022 Urine Protein 3+ H NEGATIVE Urine Glucose (UA) NEGATIVE NEGATIVE Urine Ketones 1+ H NEGATIVE Urine Nitrite NEGATIVE NEGATIVE Urine Bilirubin NEGATIVE NEGATIVE Urine Urobilinogen NORMAL NORMAL MG/DL Urine Leukocyte Esterase 1+ H NEGATIVE Urine RBC (Auto) 1+ H NEGATIVE Urine RBC 0-2 /HPF Urine WBC 5-10 H /HPF Urine Squamous Epithelial Cells 2-5 /HPF Urine Crystals NONE /LPF Urine Bacteria MODERATE H /HPF Urine Casts NONE /LPF Urine Mucus SMALL H /LPF Urine Culture Indicated CULTURE PENDING Micro Results Microbiology 03/18/19 Blood Culture - Final, Complete No growth 03/17/19 Blood Culture - Final, Complete No growth 03/18/19 Gram Stain - Final, Complete 03/18/19 Body Fluid Culture - Final, Complete No growth 03/17/19 Urine Culture - Final, Complete Pseudomonas aeruginosa My Orders Orders - ZOEY MONTGOMERY DO Cbc With Automated Diff (03/17/19 23:37) Comprehensive Metabolic Panel (03/17/19 23:37) Blood Culture (03/17/19 23:37) Urinalysis (03/17/19:37) Urine Culture (03/17/19:) Protime With Inr (03/17/19 23:37) Partial Thromboplastin Time (03/17/19 23:37) Chest 1 View, Ap/Pa Only (03/17/19 23:37) Ed Iv/Invasive Line Start (03/17/19 23:37) Ed Iv/Invasive Line Start (03/17/19 23:37) Ekg Tracing (03/17/19:37) Troponin I (03/17/19:37) Vital Signs Adult Sepsis Patie Q15M (03/17/19:37) O2 (03/17/19 23:37) Remove Rings In Anticipation O (03/17/19 23:37) Lactic Acid Analyzer (03/17/19:37) BNP (03/17/19:37) Creatine Kinase (03/17/19:37) Creatine Kinase Mb (03/17/19 23:37) Magnesium (03/17/19 23:37) Myoglobin Serum (03/17/19 23:37) Manual Differential (03/17/19 23:50) Ed Iv/Invasive Line Start (03/18/19 00:11) Ns Iv 1000 Ml (Sodium Chloride 0.9%) (03/18/19 00:11) Piperacillin Sodium/Tazobactam (Zosyn Vi (03/18/19 00:45) Vancomycin Injection (Vancomycin Injecti (03/18/19 00:45) Ed Iv/Invasive Line Start (03/18/19 00:41) Ns Iv 1000 Ml (Sodium Chloride 0.9%) (03/18/19 00:41) Acetaminophen Tablet (Tylenol Tablet) (03/18/19 01:00) Ibuprofen Tablet (Motrin Tablet) (03/18/19 01:00) Acetaminophen Oral Solution (Tylenol Ora (03/18/19 01:00) Ibuprofen Suspension (Motrin Suspension) (03/18/19 01:00) Fentanyl Injection (Sublimaze Injection (03/18/19 02:00) Vancomycin Injection (Vancomycin Injecti (03/18/19 01:51) Ns (Ivpb) (Sodium Chloride 0.9%) (03/18/19 02:03) Fentanyl Injection (Sublimaze Injection (03/18/19 03:30) Iv Infusion <= First Hr Ed (03/17/19 ) Vital Signs/I&O Capillary Refill : Less Than 3 Seconds Blood Pressure Mean: 76 Progress Note : Progress Note HEART RATE AND TEMP DOWN WITH MEDICATIONS BP IS ALWAYS IN 90'S SYSTOLIC PER AND [facility] ECG Initial ECG Impression Date: Mar 17, 2019 Initial ECG Impression Time: 23:54 Initial ECG Rate: 105 Initial ECG Rhythm: S.Tach Initial ECG Impression: Nonspecific Changes Diagnostic Imaging Comments CXR--LARGE CONSOLIDATION/EFFUSION ON RIGHT, PENDING RADIOLOGIST REVIEW Reviewed: Reviewed by Md Departure Communication (Admissions) 0100--CALLED [facility] 0122--DR. COLBY HAS ACCEPTED PT FOR ADMIT/TRANSFER. Impression Primary Impression: Sepsis Additional Impressions: Pneumonia UTI (urinary tract infection) Esophageal cancer Disposition: 02 XFER SHT-TRM HOSP Condition: Improved Transfer Transfer Facility: Method of Transfer: EMS Departure-Patient Inst. Referrals: NO,LOCAL PHYSICIAN (PCP) Primary Care Physician ZOEY MONTGOMERY DO May 18, 2019 00:20
== END 2019-03-18 03:30 | disposition short-term general hospital (02) ==
LOC: EDUNIT# 23:32 → ER 23:34
DX: A41.9 Sepsis, unspecified organism (principal); J18.9 Pneumonia, unspecified organism; N39.0 Urinary tract infection, site not specified; C15.9 Malignant neoplasm of esophagus, unspecified; C79.9 Secondary malignant neoplasm of unspecified site; J44.9 Chronic obstructive pulmonary disease, unspecified; K21.9 Gastro-esophageal reflux disease without esophagitis; F17.210 Nicotine dependence, cigarettes, uncomplicated; Z93.1 Gastrostomy status
CPT/HCPCS: 36415; 71045; 80053; 81000; 82550; 82553; 83605; 83735; 83874; 83880; 84484; 85007; 85027; 85610; 85730; 87040; 87070; 87088; 87186; 87205; 93005; 96365; 96375

== ENCOUNTER → 2019-04-23 | Outpatient (CLI) | payer BC ==
[2019-04-23 14:00] LABS: BASOPHILS # (AUTO) 0.2 10^3/uL (0.0-0.1); BASOPHILS % (AUTO) 2 % (0-10); EOSINOPHILS # (AUTO) 0.3 10^3/uL (0.0-0.3); EOSINOPHILS % (AUTO) 3 % (0-10); HEMATOCRIT 34 % (40-54); HEMOGLOBIN 10.5 G/DL (13.3-17.7); LYMPHOCYTES # (AUTO) 1.7 X 10^3 (1.0-4.0); LYMPHOCYTES % (AUTO) 18 % (12-44); MEAN CORPUSCULAR HEMOGLOBIN 27 PG (25-34); MEAN CORPUSCULAR HGB CONC 31 G/DL (32-36); MEAN CORPUSCULAR VOLUME 87 FL (80-99); MEAN PLATELET VOLUME 10.4 FL (7.4-10.4); MONOCYTES # (AUTO) 0.9 X 10^3 (0.0-1.0); MONOCYTES % (AUTO) 10 % (0-12); NEUTROPHILS # (AUTO) 6.4 X 10^3 (1.8-7.8); NEUTROPHILS % (AUTO) 67 % (42-75); PLATELET COUNT 418 10^3/uL (130-400); RED CELL DISTRIBUTION WIDTH 17.8 % (10.0-14.5); WHITE BLOOD COUNT 9.4 10^3/uL (4.3-11.0)
[2019-04-23 14:21] LABS: ALANINE AMINOTRANSFERASE 33 U/L (0-55); ALBUMIN 3.4 GM/DL (3.2-4.5); ALKALINE PHOSPHATASE 173 U/L (40-136); BILIRUBIN,TOTAL 0.3 MG/DL (0.1-1.0); BUN/CREATININE RATIO 29; CALCIUM 8.9 MG/DL (8.5-10.1); CARBON DIOXIDE 29 MMOL/L (21-32); CHLORIDE 102 MMOL/L (98-107); GFR ESTIMATED > 60; GLUCOSE 76 MG/DL (70-105); POTASSIUM 4.8 MMOL/L (3.6-5.0); SODIUM 138 MMOL/L (135-145); TOTAL PROTEIN 6.4 GM/DL (6.4-8.2)
[2019-04-23 14:27] LABS: VANCOMYCIN,TROUGH < 0.4 UG/ML (10.0-20.0)
[2019-04-23 14:51] LABS: BASOPHILS % (MANUAL) 1 %; EOSINOPHILS % (MANUAL) 4 %; LYMPHOCYTES % (MANUAL) 19 %; MONOCYTES % (MANUAL) 6 %; NEUTROPHILS % (MANUAL) 70 %; RBC MORPH NORMAL
== END ==
LOC: LABNPT 13:51
PROVIDERS: ATTEND Thoracic Surgery (Cardiothoracic Vascular Surgery)
DX: B96.5 Pseudomonas (aeruginosa) (mallei) (pseudomallei) as the cause of diseases classified elsewhere (principal)
CPT/HCPCS: 80053; 80202; 85007; 85027

== ENCOUNTER → 2019-04-30 | Outpatient (CLI) | payer BC ==
[2019-04-30 12:47] LABS: BASOPHILS # (AUTO) 0.1 10^3/uL (0.0-0.1); BASOPHILS % (AUTO) 1 % (0-10); EOSINOPHILS # (AUTO) 0.4 10^3/uL (0.0-0.3); EOSINOPHILS % (AUTO) 5 % (0-10); HEMATOCRIT 33 % (40-54); HEMOGLOBIN 10.4 G/DL (13.3-17.7); LYMPHOCYTES # (AUTO) 1.3 X 10^3 (1.0-4.0); LYMPHOCYTES % (AUTO) 15 % (12-44); MEAN CORPUSCULAR HEMOGLOBIN 28 PG (25-34); MEAN CORPUSCULAR HGB CONC 32 G/DL (32-36); MEAN CORPUSCULAR VOLUME 87 FL (80-99); MEAN PLATELET VOLUME 10.1 FL (7.4-10.4); MONOCYTES % (AUTO) 11 % (0-12); NEUTROPHILS % (AUTO) 68 % (42-75); PLATELET COUNT 356 10^3/uL (130-400); RED CELL DISTRIBUTION WIDTH 17.6 % (10.0-14.5); WHITE BLOOD COUNT 8.8 10^3/uL (4.3-11.0)
[2019-04-30 13:05] LABS: ANISOCYTOSIS SLIGHT; BAND NEUTROPHILS 1 %; BASOPHILS % (MANUAL) 0 %; EOSINOPHILS % (MANUAL) 9 %; LYMPHOCYTES % (MANUAL) 15 %; MONOCYTES % (MANUAL) 13 %; NEUTROPHILS % (MANUAL) 62 %
[2019-04-30 13:06] LABS: ALANINE AMINOTRANSFERASE 19 U/L (0-55); ALBUMIN 3.4 GM/DL (3.2-4.5); ALKALINE PHOSPHATASE 146 U/L (40-136); BILIRUBIN,TOTAL 0.2 MG/DL (0.1-1.0); BUN/CREATININE RATIO 25; CALCIUM 9.1 MG/DL (8.5-10.1); CARBON DIOXIDE 26 MMOL/L (21-32); CHLORIDE 104 MMOL/L (98-107); CREATININE SERUM 0.71 MG/DL (0.60-1.30); GFR ESTIMATED > 60; GLUCOSE 94 MG/DL (70-105); POTASSIUM 4.5 MMOL/L (3.6-5.0); SODIUM 139 MMOL/L (135-145); TOTAL PROTEIN 6.2 GM/DL (6.4-8.2)
== END ==
LOC: LABNPT 12:36
PROVIDERS: ATTEND Student in an Organized Health Care Education/Training Program
DX: B96.5 Pseudomonas (aeruginosa) (mallei) (pseudomallei) as the cause of diseases classified elsewhere (principal)
CPT/HCPCS: 80053; 85007; 85027

== ENCOUNTER 2019-06-28 11:21 | Outpatient (RCR) | payer BC | END 2019-08-16 | disposition home or self-care (01) | LOC: ONC 11:21 | PROVIDERS: ATTEND Internal Medicine Hematology & Oncology | DX: C16.0 Malignant neoplasm of cardia (principal); J44.9 Chronic obstructive pulmonary disease, unspecified; F17.210 Nicotine dependence, cigarettes, uncomplicated ==

== ENCOUNTER 2020-05-22 05:44 | Outpatient (CLI) | payer BC, MEDICARE ==
[~2020-05-22] VITALS: Ht 167 cm; Wt 65.9 kg
== END 2020-05-22 12:41 | disposition home or self-care (01) ==
LOC: PREOP 05:44
PROVIDERS: ATTEND Surgery
DX: Z01.818 Encounter for other preprocedural examination (principal)

== ENCOUNTER → 2020-05-28 | Outpatient (CLI) | payer MEDICARE | LOC: LABNPT 06:08 | PROVIDERS: ATTEND Surgery | DX: C15.9 Malignant neoplasm of esophagus, unspecified (principal); Z20.828 Contact with and (suspected) exposure to other viral communicable diseases | CPT/HCPCS: 87635 ==

== ENCOUNTER 2020-05-29 08:12 | Day surgery (SDC) | payer MEDICARE, OTHER ==
[~2020-05-29] VITALS: Ht 167 cm; Wt 65.9 kg
[2020-05-29] VITALS (11 sets, daily range): BP systolic 106–132; BP diastolic 49–74
[2020-05-29] MEDS ORDERED: LACTATED RINGERS 1,000 ML IV PRN (08:28)
[2020-05-29] MEDS ORDERED: ceFAZolin INJECTION 1,000 MG in WATER (STERILE) FOR INJECTION 10 ML IV ONE (08:30)
[2020-05-29] MEDS ORDERED: CATHETER FLUSH 10 ML SYR IV PRN (08:45)
--- NOTE | 2020-05-29 09:11 | Progress Note-Pre Operative ---
Pre-Operative Progress Note H&P Reviewed The H&P was reviewed, patient examined and no changes noted. Date Seen by Provider: May 29, 2020 Time Seen by Provider: 09:10 Date H&P Reviewed: May 29, 2020 Time H&P Reviewed: 09:10 Pre-Operative Diagnosis: hx esophageal cancer KRISTINA ENCINAS DO May 29, 2020 09:11
[2020-05-29] MEDS ORDERED: BUP/EPI 0.25% 1:200,000 (MARCAINE) 30 ML VIAL ONE (09:22)
[2020-05-29] MEDS ORDERED: ONDANSETRON 4 MG/2 ML (SDV) Z0FRAN ONE (09:28)
[2020-05-29] MEDS ORDERED: SEVOFLURANE (ULTANE) 15 ML INHAL SOLN ONE (09:28)
[2020-05-29] MEDS ORDERED: fentaNYL INJECTION 100 MCG/2 ML AMP ONE (09:28)
[2020-05-29] MEDS ORDERED: MIDAZOLAM 2 MG/2 ML (VERSED) VIAL ONE (09:28)
[2020-05-29] MEDS ORDERED: proPOfol 200 MG/20 ML (DIPRIVAN) VIAL IV ONE (09:28)
[2020-05-29] MEDS ORDERED: LIDOCAINE PF 2% 5 ML (XYLOCAINE) VIAL ONE (09:31)
--- NOTE | 2020-05-29 10:18 | Progress Note-Post Operative ---
Post-Operative Progess Note Surgeon (s)/Interventional Neuroradiologist (s) Surgeon KRISTINA ENCINAS DO Interventional Neuroradiologist: na Pre-Operative Diagnosis hx esophageal cancer Post-Operative Diagnosis same Procedure & Operative Findings Date of Procedure 05/29/20 Procedure Performed/Findings PROCEDURE: Removal of port, COMPLICATIONS: None. INDICATIONS: The patient is a 64 year-old male who had a port previously placed. Patient is ok to have port removed. The patient was explained risk and benefits of the procedure and wished to proceed with procedure. Consent was signed on the chart. PROCEDURE: The patient was taken to the operating suite and was prepped and draped in sterile fashion. A surgical pause was performed. Local anesthetic was infiltrated to the area around the port. A number 15 blade scalpel was used to make an incision. Cautery was used to dissect down to the port which was then grasped and then dissected around. The catheter was removed in its entirety. The port was then able to be dissected out of the pocket and elevated. The wound was then irrigated with copious amounts of irrigation. Hemostasis had been achieved. The subcutaneous tissues were then reapproximated using 3-0 Vicryl. The area was then washed and dried and Skin Affix placed over the incision. The patient tolerated the procedure well without complication and was taken to recovery room in stable condition. Anesthesia Type gen Estimated Blood Loss Estimated blood loss (mL): min Specimens/Packing Specimens Removed KRISTINA Martinez DO May 29, 2020 10:18
--- NOTE | 2020-05-29 10:21 | Discharge Inst-Simple/Standard ---
Discharge Inst-Standard Patient Instructions/Follow Up Plan of Care/Instructions/FU: 2-3 weeks Teri Activity as Tolerated: No Discharge Diet: Regular Diet Other Inst to Patient Follow up Appt: Make appointment for 2-3 weeks. Instructions: No strenuous activity. May shower in 24 hours, no tub bath or soaking. Use incentive spirometer at home as directed. No Smoking Skin/Wound Care: You have special glue over your incision that will fall off on it's own. Symptoms to Report: Appetite Changes, Extremity Discoloration, Numbness/Tingling, Swelling Increased, Bleeding Excessive, Eyesight Changes, Pain Increased, Urine Color Change, Constipation(Persistent), Fever over 101 degree F, Pain/Pressure in chest, Urinating Difficulty, Cough Up/Vomit Blood, Heart Beat Irreg/Pounding, Pain/Pressure in jaw, Vaginal Bleeding Increase, Cramps in feet or legs, Lightheadedness, Pain/Pressure in shoulder, Diarrhea(Persistent), Memory Changes Suddenly, Questions/Concerns, Weight gain consecutive days, Dizziness/Fainting, Nausea/Vomiting, Shortness of Breath, Weight gain over 2 pounds If questions or concerns contact your physician Or seek help at emergency department. KRISTINA ENCINAS DO May 29, 2020 10:21
[2020-05-29] MEDS ORDERED: morphine INJ 10 MG/ML 1ML (SYR OR VIAL) IVP ONE (10:30)
[2020-05-29] MEDS ORDERED: KETOROLAC 30 MG/ML VIAL IVP ONE (10:30)
[2020-05-29] MEDS ORDERED: MEPERIDINE (DEMEROL) INJ 50 MG/ML IVP ONE (10:30)
[2020-05-29] MEDS ORDERED: ONDANSETRON 4 MG/2 ML (SDV) Z0FRAN IVP PRN (10:30)
[2020-05-29] MEDS ORDERED: KETOROLAC 30 MG/ML VIAL ONE (10:41)
--- NOTE | 2020-05-29 12:15 | Anesthesia-General Post-Op ---
General Patient Condition Mental Status/LOC: Same as Preop Cardiovascular: Satisfactory Nausea/Vomiting: Absent Respiratory: Satisfactory Pain: Controlled Complications: Absent Post Op Complications Complications None Follow Up Care/Instructions Patient Instructions None needed. Anesthesia/Patient Condition Patient Condition Patient is doing well, no complaints, stable vital signs, no apparent adverse anesthesia problems. No complications reported per nursing. FEDERICA MONTERO CRNA May 29, 2020 12:15
== END 2020-05-29 12:20 ==
LOC: SDC 08:12
PROVIDERS: ATTEND Surgery
DX: Z85.01 Personal history of malignant neoplasm of esophagus (principal); J44.9 Chronic obstructive pulmonary disease, unspecified; K21.9 Gastro-esophageal reflux disease without esophagitis; D64.9 Anemia, unspecified; F17.210 Nicotine dependence, cigarettes, uncomplicated; Z92.21 Personal history of antineoplastic chemotherapy; Z80.1 Family history of malignant neoplasm of trachea, bronchus and lung
CPT/HCPCS: 87081

== ENCOUNTER → 2021-05-07 | Outpatient (CLI) | payer MEDICARE, OTHER | LOC: LABNPT 06:17 | PROVIDERS: ATTEND Internal Medicine | DX: Z20.822 Contact with and (suspected) exposure to COVID-19 (principal) | CPT/HCPCS: 87635 ==

== ENCOUNTER → 2021-07-17 | Outpatient (CLI) | payer MEDICARE, OTHER | LOC: LABNPT 05:55 | PROVIDERS: ATTEND Internal Medicine | DX: Z20.822 Contact with and (suspected) exposure to COVID-19 (principal) | CPT/HCPCS: 87635 ==